=== PATIENT | female | born 1965 | race Caucasian/White ===

== ENCOUNTER 2020-04-20 15:07 | Inpatient (IN) | payer OTHER ==
--- NOTE | 2020-04-20 15:38 | BHS.RME ---
Substance Use & Tx History - Substance Use History Heroin Substance amount: 6-8 bags Frequency of use: Daily Substance route: Inhalation (ex: sniffing or snorting) Date of Last Use: 04/20/20 - Last Treatment Date of last treatment: First [facility] admit. Detox one year ago: [facility] Physical/Psych/Mental Status - Behavior General Behavior: Increased activity (restlessness, agitation) Eye Contact: Normal - Thinking Thought Processes: Tight Thought content: Future oriented - Physical Health Problems Is patient presently having any pain?: Yes (right posterior shoulder pain post lifting heavy bags) Does patient presently have any injuries (include location): No Does patient currently have a fever: No COWS - Scale Resting Pulse: 0= [place] 80 or Below Sweatin=Flushed/Facial Moisture Restless Observation: 1= Difficult to Sit Still Pupil Size: 0= Normal to Room Light Bone or Joint Aches: 1= Mild Discomfort Runny Nose/ Eye Tearin= Runny Nose/Eyes GI Upset > 30mins: 2= Nausea/Diarrhea Tremor Observation: 2= Slight Tremor Visible Yawning Observation: 1= 1-2x During Session Anxiety or Irritability: 1=Feels Anxious/Irritable Goose Flesh Skin: 0=Smooth Skin COWS Score: 12
[2020-04-20 16:27] VITALS: BMI 22.2
--- NOTE | 2020-04-20 16:46 | HP ---
COWS - Scale Resting Pulse: 0= [place] 80 or Below Sweatin=Flushed/Facial Moisture Restless Observation: 1= Difficult to Sit Still Pupil Size: 0= Normal to Room Light Bone or Joint Aches: 1= Mild Discomfort Runny Nose/ Eye Tearin= Runny Nose/Eyes GI Upset > 30mins: 2= Nausea/Diarrhea Tremor Observation: 2= Slight Tremor Visible Yawning Observation: 1= 1-2x During Session Anxiety or Irritability: 1=Feels Anxious/Irritable Goose Flesh Skin: 0=Smooth Skin COWS Score: 12 CIWA Score - Admission Criteria OASAS Guidelines: Admission for Medically Managed Detox: Requires at least one of the followin. CIWA greater than 12 2. Seizures within the past 24 hours 3. Delirium tremens within the past 24 hours 4. Hallucinations within the past 24 hours 5. Acute intervention needed for co occurring medical disorder 6. Acute intervention needed for co occurring psychiatric disorder 7. Severe withdrawal that cannot be handled at a lower level of care (continued vomiting, continued diarrhea, abnormal vital signs) requiring intravenous medication and/or fluids 8. Admitting History and Physical - Admission Chief Complaint: detox from heroin History of Present Illness: Patient is a 55 y/o female with a history of GERD who presents for detox from Heroin. Patient last used heroin this morning. First started using heroin for 5 years. Has gone through detox twice. Patient uses every day and uses between 6-7 bags. Patient has never overdosed. Patient denies using it IV. - Substance Use History Heroin Substance amount: 6-8 bags Frequency of use: Daily Substance route: Inhalation (ex: sniffing or snorting) Date of Last Use: 04/20/20 - Last Treatment Date of last treatment: First [facility] admit. Detox one year ago: [facility] PSHX: breast augmentaion Smokes 1 pack of cigarettes a day, denies alcohol use. patient meets inpatient criteria for detox from heroin with last use today, failed detox in the past. - Past Medical History Gastrointestinal: Yes: GERD - Past Surgical History Additional Past Surgical History: breast augmentation - Smoking History Smoking history: Current every day smoker Aproximately how many cigarettes per day: 15 - Alcohol/Substance Use Hx Alcohol Use: No History of Substance Use: reports: Heroin - Social History Usual Living Arrangement: Yes: Other (live with mom and grandson) Occupation: none Admission ROS [facility] - [facility] Allergies/Adverse Reactions: Allergies Allergy/AdvReac Type Severity Reaction Status Date / Time No Known Allergies Allergy Verified 04/20/20 17:02 - Ebola screening Have you traveled outside of the country in the last 21 days: No Have you had contact with anyone from an Ebola affected area: No Have you been sick,other than usual withdrawal symptoms: No Do you have a fever: No - Review of Systems Constitutional: No Symptoms Reported Respiratory: reports: No Symptoms reported Cardiac: reports: No Symptoms Reported GI: reports: No Symptoms Reported Musculoskeletal: reports: No Symptoms Reported Patient History - Smoking Cessation Smoking history: Never smoked - Substances abused Heroin Substance route: Inhalation Frequency: Daily Amount used: 6 bags Age of first use: 40 Date of last use: 04/20/20 Admission Physical Exam [facility] Vital Signs Vital Signs: Vital Signs - 24 hr 04/20/20 16:25 Temperature 97.6 F Pulse Rate 79 Respiratory 12 Rate Blood Pressure 104/77 - Physical General Appearance: Yes: Within Normal Limits, No Apparent Distress HEENTM: Yes: Hearing grossly Normal Respiratory: Yes: Chest Non-Tender, Normal Breath Sounds, No Accessory Muscle Use Cardiology: Yes: Regular Rhythm, Regular Rate Abdominal: Yes: Normal Bowel Sounds, Flat Musculoskeletal: Yes: full range of Motion Extremities: Yes: Normal Range of Motion - Diagnostic (1) Heroin addiction Current Visit: Yes Status: Acute (2) Opioid dependence with withdrawal Current Visit: Yes Status: Acute Breathalyzer - Breathalyzer Breathalyzer: 0 Vital Signs - Vital Signs Vital signs refused: No Temperature: 97.6 F Temperature source: Oral Pulse Rate: 79 Respiratory Rate: 12 Blood Pressure: 104/77 - Height Height: 5 ft 6 in - Weight Weight: 62.596 kg - BMI Body Mass Index (BMI): 22.2 Urine Drug Screen - Test Device Lot number: [id number] Expiration date: 04/20/21 - Control Is test valid?: Yes - Results Drug screen NEGATIVE: No Urine drug screen results: THC-Marijuana, FEN-Fentanyl, MOP-Opiates, BZO- Benzodiazepines Inpatient Rehab Admission - Rehab Decision to Admit Inpatient rehab admission?: No
[2020-04-20] MEDS ORDERED: IBUPROFEN 400 MG TABLET (FP) PO PRN (16:49)
[2020-04-20] MEDS ORDERED: cloNIDine HCL 0.1 MG TABLET PO PRN (16:49)
[2020-04-20] MEDS ORDERED: MAG HYDROX/AL HYDROX/SIMETH 30 ML UNIT-DOSE CUP PO PRN (16:49)
[2020-04-20] MEDS ORDERED: BISMUTH SUBSALICYLATE 524 MG/30 ML UD PO PRN (16:49)
[2020-04-20] MEDS ORDERED: ACETAMINOPHEN 325 MG TABLET (FP) PO PRN ×2 (16:49)
[2020-04-20] MEDS ORDERED: MENTHOL/PHENOL 1 EACH UD MM PRN (16:49)
[2020-04-20] MEDS ORDERED: MAGNESIUM CITRATE 300 ML BOTTLE PO PRN (16:49)
[2020-04-20] MEDS ORDERED: METHOCARBAMOL 500 MG TABLET PO PRN (16:49)
[2020-04-20] MEDS ORDERED: NICOTINE POLACRILEX 2 MG GUM BUC PRN (16:49)
[2020-04-20] MEDS ORDERED: MAGNESIUM HYDROX 2400MG/30ML ORAL SUSPENSION 30 ML CUP PO PRN (16:49)
[2020-04-20] MEDS ORDERED: METHADONE HCL 10 MG TABLET (FOR DETOX USE ONLY) PO ONE (17:15)
[2020-04-20] MEDS ORDERED: ONDANSETRON *ODT* 4 MG TABLET SL ONE (17:15)
[2020-04-20] MEDS: hydrOXYzine PAMOATE 25 MG CAPSULE (FP) PO SCH ×2 (18:13→22:45)
[2020-04-20] MEDS: PRENATAL VITAMINS W/ FOLIC ACID TABLET (FP) PO SCH (18:13)
[2020-04-20] MEDS: NICOTINE 7 MG/24 HOURS TOPICAL PATCH TD SCH (18:13)
[2020-04-20] MEDS ORDERED: MELATONIN 5 MG TABLETS PO SCH (22:00)
[2020-04-20] MEDS ORDERED: THIAMINE HCL 100 MG TABLET (FP) PO SCH (22:00)
[2020-04-21] MEDS: hydrOXYzine PAMOATE 25 MG CAPSULE (FP) PO SCH ×2 (05:45→09:49)
[2020-04-21] MEDS ORDERED: METHADONE HCL 10 MG TABLET (FOR DETOX USE ONLY) ONE (09:17)
[2020-04-21] MEDS ORDERED: METHADONE HCL 5 MG TABLET (FOR DETOX USE ONLY) ONE (09:18)
[2020-04-21 09:31] VITALS: BP 125/78; PULSE 64; TEMP 96.6
[2020-04-21] MEDS: PRENATAL VITAMINS W/ FOLIC ACID TABLET (FP) PO SCH (09:49)
[2020-04-21] MEDS: NICOTINE 7 MG/24 HOURS TOPICAL PATCH TD SCH (09:50)
[2020-04-21] MEDS ORDERED: METHADONE (DETOX) 20 MG, METHADONE (DETOX) 5 MG PO ONE (10:00)
[2020-04-21 10:28] LABS: HEMOGLOBIN 12.3 GM/dL (10.7-15.3); MCH 27.5 pg (25.7-33.7); MCHC 32.5 g/dl (32.0-36.0); MEAN CELL VOLUME 84.8 fl (80-96); MEAN PLT VOLUME 8.1 fl (7.5-11.1); PLATELET COUNT 315 K/MM3 (134-434); RBC 4.49 M/mm3 (3.60-5.2); RDW 15.5 % (11.6-15.6); WHITE BLOOD COUNT 6.2 K/mm3 (4.0-10.0)
[2020-04-21 10:38] LABS: ALBUMIN 3.2 g/dl (3.4-5.0); BILIRUBIN,TOTAL 0.8 mg/dL (0.2-1); BLOOD UREA NITROGEN 20.4 mg/dL (7-18); CALCIUM 9.4 mg/dL (8.5-10.1); CREATININE 0.9 mg/dL (0.55-1.3); POTASSIUM 4.3 mmol/L (3.5-5.1); TOT PROT 6.3 g/dl (6.4-8.2)
--- NOTE | 2020-04-21 10:39 | EKG ---
Test Reason : Blood Pressure : / mmHG Vent. Rate : 071 BPM Atrial Rate : 071 BPM P-R Int : 138 ms QRS Dur : 076 ms QT Int : 382 ms P-R-T Axes : 071 063 044 degrees QTc Int : 415 ms NORMAL SINUS RHYTHM NORMAL ECG NO PREVIOUS ECGS AVAILABLE Confirmed by Kwame Trejo MD ([id number]) on 04/21/2020 10:38:45 AM Referred By: Confirmed By:Kwame Trejo MD
--- NOTE | 2020-04-21 11:22 | DS ---
[facility] Detox Discharge Summary Admission Date: 04/20/20 Discharge Date: 04/21/20 - History Present History: Opioid Dependence Additional Comments: 55 years old female was admitted on 04/20/20 for opiate withdrawal sx management treated with methadone detox regiment ms brian insists to leave the detox today due to "I am taking xanax 3 mg every day" offer ms brian valium or ativan for xanax detox "I do not want to detox off xanax" General Appearance: Yes: Within Normal Limits, No Apparent Distress HEENTM: Yes: Hearing grossly Normal Respiratory: Yes: Chest Non-Tender, Normal Breath Sounds, No Accessory Muscle Use Cardiology: Yes: Regular Rhythm, Regular Rate Abdominal: Yes: Normal Bowel Sounds, Flat Musculoskeletal: Yes: full range of Motion Extremities: Yes: Normal Range of Motion Pertinent Past History: time for discharge 58 minutes treatment team met with ms brian to discuss the benefits of methadone regiment completion "I do not care much about the methadone" ms ward wants xanax 3 mg po and seroquel 400mg po ms ward insists to leave the detox mr ward received monthly xanax prescription last filled 03/25/20 of 90 pills - Physical Exam Results Vital Signs: Vital Signs Temperature 96.6 F L 04/21/20 08:50 Pulse Rate 64 04/21/20 08:50 Respiratory Rate 16 04/21/20 08:50 Blood Pressure 125/78 04/21/20 08:50 O2 Sat by Pulse Oximetry (%) 97 04/21/20 08:50 Pertinent Admission Physical Exam Findings: opiate withdrawal Laboratory Tests 04/20/20 04/21/20 04/21/20 16:27 08:15 08:15 WBC 6.2 RBC 4.49 Hgb 12.3 Hct 38.0 MCV 84.8 MCH 27.5 MCHC 32.5 RDW 15.5 Plt Count 315 MPV 8.1 Sodium 141 Potassium 4.3 Chloride 108 H Carbon Dioxide 28 Anion Gap 5 L BUN 20.4 H Creatinine 0.9 Est GFR (CKD-EPI)AfAm 84.61 Est GFR (CKD-EPI)NonAf 73.00 Random Glucose 89 Calcium 9.4 Total Bilirubin 0.8 AST 12 L ALT 14 Alkaline Phosphatase 78 Total Protein 6.3 L Albumin 3.2 L POC Urine HCG, Qual Negative Syphilis Serology 04/21/20 08:15 WBC RBC Hgb Hct MCV MCH MCHC RDW Plt Count MPV Sodium Potassium Chloride Carbon Dioxide Anion Gap BUN Creatinine Est GFR (CKD-EPI)AfAm Est GFR (CKD-EPI)NonAf Random Glucose Calcium Total Bilirubin AST ALT Alkaline Phosphatase Total Protein Albumin POC Urine HCG, Qual Syphilis Serology Non-reactive Vital Signs - 24 hr 04/20/20 04/20/20 04/20/20 16:25 17:09 17:51 Temperature 97.6 F 97.6 F 97.1 F L Pulse Rate 79 79 71 Respiratory 12 12 18 Rate Blood Pressure 104/77 104/77 135/77 O2 Sat by Pulse Oximetry (%) 04/20/20 04/20/20 04/20/20 17:54 19:26 20:49 Temperature 97.6 F 97.8 F Pulse Rate 79 60 Respiratory 12 18 Rate Blood Pressure 104/77 110/72 O2 Sat by Pulse 98 95 Oximetry (%) 04/21/20 04/21/20 06:37 08:50 Temperature 97.2 F L 96.6 F L Pulse Rate 57 L 64 Respiratory 18 16 Rate Blood Pressure 109/75 125/78 O2 Sat by Pulse 97 97 Oximetry (%) covid pending - Treatment Hospital Course: Detox Protocol Followed Patient has Accepted a Rehab Referral to: ivone lopez - Medication Discharge Medications: Ambulatory Orders NK [No Known Home Medication] 04/20/20 - Diagnosis (1) Opioid dependence with withdrawal Status: Acute (2) Substance induced mood disorder Status: Suspected - AMA Did Patient Leave Against Medical Advice: Yes COWS (PN) - Opiate Withdrawal Resting Pulse: 0= [place] 80 or Below Sweatin= Chills/Flushing Restless Observation: 0= Sits Still Pupil Size: 1= Pupils >than Normal Bone or Joint Aches: 1= Mild Discomfort Runny Nose/ Eye Tearin= None GI Upset > 30mins: 1= Stomach Cramp Tremor Observation of Outstretched Hands: 1= Tremor [place], Not Seen Yawning Observation: 0= None Anxiety or Irritability: 2=Irritable/Anxious Goose Flesh Skin: 3=Piloerection COWS Score: 10
--- NOTE | 2020-04-22 08:15 | PN ---
Teaching Attending Note Name of Resident: Aleah Rosa ATTENDING PHYSICIAN STATEMENT I saw and evaluated the patient. I reviewed the resident's note and discussed the case with the resident. I agree with the resident's findings and plan as documented. SUBJECTIVE: OBJECTIVE: ASSESSMENT AND PLAN: Agree with resident's findings and plan for detox.
[2020-04-22] MEDS ORDERED: METHADONE HCL 10 MG TABLET (FOR DETOX USE ONLY) PO ONE (10:00)
[2020-04-23] MEDS ORDERED: METHADONE (DETOX) 10 MG, METHADONE (DETOX) 5 MG PO ONE (10:00)
[2020-04-24] MEDS ORDERED: METHADONE HCL 10 MG TABLET (FOR DETOX USE ONLY) PO ONE (10:00)
[2020-04-25] MEDS ORDERED: METHADONE HCL 5 MG TABLET (FOR DETOX USE ONLY) PO ONE (06:00)
== END 2020-04-21 11:49 | disposition left against medical advice (07) | DRG 770 ==
LOC: YASAS 15:07 → Y3N 17:06
PROVIDERS: ADMIT Allergy & Immunology; ATTEND Allergy & Immunology
PROC: HZ2ZZZZ Detoxification Services for Substance Abuse Treatment (ICD-10-PCS; principal; 2020-04-20)
DX: F11.23 Opioid dependence with withdrawal (principal); F17.210 Nicotine dependence, cigarettes, uncomplicated; F19.24 Other psychoactive substance dependence with psychoactive substance-induced mood disorder; K21.9 Gastro-esophageal reflux disease without esophagitis; Z98.890 Other specified postprocedural states
CPT/HCPCS: 36415; 80053; 81025; 85027; 86780; 93005; 93010; U0003

== ENCOUNTER 2020-05-20 16:35 | Inpatient (IN) | payer OTHER ==
[2020-05-20 18:02] VITALS: BMI 21.7
--- NOTE | 2020-05-20 18:49 | BHS.RME ---
Substance Use & Tx History - Last Treatment Date of last treatment: 04/21/20 Treatment type: Substance Use Disorder (BRI) Where was last treatment: Detox Physical/Psych/Mental Status - Behavior Eye Contact: Normal - Cooperativeness Cooperativeness: Cooperative - Thinking Thought Processes: Logical - Physical Health Problems Is patient presently having any pain?: No Does patient presently have any injuries (include location): No Does patient currently have a fever: No Is patient : No COWS - Scale Resting Pulse: 0= [place] 80 or Below Sweatin= Chills/Flushing Restless Observation: 3= Extraneous Movement Pupil Size: 1= Pupils >than Normal Bone or Joint Aches: 2= Severe Diffuse Aches Runny Nose/ Eye Tearin= Nasal Congestion GI Upset > 30mins: 1= Stomach Cramp Tremor Observation: 1= Tremor [place], Not Seen Yawning Observation: 1= 1-2x During Session Anxiety or Irritability: 1=Feels Anxious/Irritable Goose Flesh Skin: 3=Piloerection COWS Score: 15 Treatment Recommendation - Level of Care Level of Care: Opioid Treatment Program (OTP) (admit for detox and then pt to consider OTP)
--- NOTE | 2020-05-20 18:55 | HP ---
COWS - Scale Resting Pulse: 0= [place] 80 or Below Sweatin= Chills/Flushing Restless Observation: 3= Extraneous Movement Pupil Size: 1= Pupils >than Normal Bone or Joint Aches: 2= Severe Diffuse Aches Runny Nose/ Eye Tearin= Nasal Congestion GI Upset > 30mins: 1= Stomach Cramp Tremor Observation: 1= Tremor [place], Not Seen Yawning Observation: 1= 1-2x During Session Anxiety or Irritability: 1=Feels Anxious/Irritable Goose Flesh Skin: 3=Piloerection COWS Score: 15 CIWA Score - Admission Criteria OASAS Guidelines: Admission for Medically Managed Detox: Requires at least one of the followin. CIWA greater than 12 2. Seizures within the past 24 hours 3. Delirium tremens within the past 24 hours 4. Hallucinations within the past 24 hours 5. Acute intervention needed for co occurring medical disorder 6. Acute intervention needed for co occurring psychiatric disorder 7. Severe withdrawal that cannot be handled at a lower level of care (continued vomiting, continued diarrhea, abnormal vital signs) requiring intravenous medication and/or fluids 8. Admitting History and Physical - Past Medical History Gastrointestinal: Yes: GERD - Smoking History Smoking history: Never smoked Aproximately how many cigarettes per day: 15 - Alcohol/Substance Use Hx Alcohol Use: No History of Substance Use: reports: Heroin - Social History Occupation: none Admission [facility] Chief Complaint: heroin detox Allergies/Adverse Reactions: Allergies Allergy/AdvReac Type Severity Reaction Status Date / Time No Known Allergies Allergy Verified 04/20/20 17:02 History of Present Illness: 55 yo with h/o depression, anxiety and panic attacks. Says when her daughter a few years ago, she was given heroin for depression by a cousin. Has been sniffing 5-6 bags/day. Was in a methadone program for a few months- did not like it and so left. Is willing to go back for MMTP. Says psychiatrist gives her Ativan 1mg/day for anxiety; Also on Seroquel 100mg qhs, paxil, Wellbutrin (not taking) Meds: PPI occ, PCP- [facility] heroin- 5-6 bags/day, no h/o OD Cannabis- smoke 1 joint/day Utox- Fen, THC, BZO LIA-0 - Ebola screening Have you traveled outside of the country in the last 21 days: No Have you had contact with anyone from an Ebola affected area: No Have you been sick,other than usual withdrawal symptoms: No Do you have a fever: No - Review of Systems Constitutional: No Symptoms Reported EENT: reports: No Symptoms Reported Respiratory: reports: No Symptoms reported Cardiac: reports: No Symptoms Reported GI: reports: No Symptoms Reported : reports: No Symptoms Reported Musculoskeletal: reports: No Symptoms Reported Integumentary: reports: No Symptoms Reported Neuro: reports: No Symptoms reported Endocrine: reports: No Symptoms Reported Hematology: reports: No Symptoms Reported Psychiatric: reports: No Sypmtoms Reported Other Systems: Reviewed and Negative Patient History - Patient Medical History Hx Asthma: No Hx Chronic Obstructive Pulmonary Disease (COPD): No Hx Cardiac Disorders: No Hx Hypertension: No Hx Seizures: No Hx Diabetes: No Hx Gastrointestinal Disorders: No Hx Genitourinary Disorders: No Hx Sexually Transmitted Disorders: No Hx Renal Disease (ESRD): No Hx Depression: Yes Hx Suicide Attempt: No Hx Schizophrenia: No - Patient Surgical History Past Surgical History: Yes Hx Neurologic Surgery: No Hx Cataract Extraction: No Hx Cardiac Surgery: No Hx Lung Surgery: No Hx Breast Surgery: No Hx Breast Biopsy: No Hx Abdominal Surgery: No Hx Appendectomy: No Hx Cholecystectomy: No Hx Genitourinary Surgery: No Hx Section: No Hx Orthopedic Surgery: No Other Surgical History: breast augmentation - PPD History Date: 04/22/20 - Reproductive History Patient is a Female of Child Bearing Age (11 -55 yrs old): Yes Patient : No - Smoking Cessation Smoking history: Never smoked Aproximately how many cigarettes per day: 15 Hx Chewing Tobacco Use: Yes Initiated information on smoking cessation: Yes 'Breaking Loose' booklet given: 05/20/20 - Substance & Tx. History Hx Alcohol Use: No Hx Substance Use: Yes Substance Use Type: Opiates, Tranquilizers Hx Substance Use Treatment: Yes Admission Physical Exam [facility] - Vital Signs Vital Signs: Vital Signs - 24 hr 05/20/20 18:00 Temperature 97.3 F L Pulse Rate 60 Respiratory 16 Rate Blood Pressure 123/75 - Physical General Appearance: Yes: Within Normal Limits HEENTM: Yes: Within Normal Limits, JOJO Respiratory: Yes: Within Normal Limits, Lungs Clear Neck: Yes: Within Normal Limits Cardiology: Yes: Within Normal Limits Abdominal: Yes: Within Normal Limits, Flat Back: Yes: Within Normal Limits Musculoskeletal: Yes: Within Normal Limits Extremities: Yes: Within Normal Limits Neurological: Yes: Within Normal Limits Integumentary: Yes: Within Normal Limits Lymphatic: Yes: Within Normal Limits - Diagnostic (1) Anxiety Current Visit: Yes Status: Acute (2) Depression Current Visit: Yes Status: Acute (3) Panic disorder Current Visit: Yes Status: Acute (4) Heroin addiction Current Visit: No Status: Acute (5) Opioid dependence with withdrawal Current Visit: No Status: Acute (6) Substance induced mood disorder Current Visit: No Status: Suspected Breathalyzer - Breathalyzer Breathalyzer: 0 Urine Drug Screen - Test Device Lot number: [id number] Expiration date: 11/26/21 - Control Is test valid?: Yes - Results Drug screen NEGATIVE: No Urine drug screen results: THC-Marijuana, FEN-Fentanyl, BZO-Benzodiazepines Inpatient Rehab Admission - Rehab Decision to Admit Inpatient rehab admission?: No
[2020-05-20] MEDS ORDERED: METHADONE HCL 10 MG TABLET (FOR DETOX USE ONLY) PO ONE (19:37)
[2020-05-20] MEDS ORDERED: cloNIDine HCL 0.1 MG TABLET PO PRN (19:37)
[2020-05-20] MEDS ORDERED: diazePAM 5 MG TABLET PO PRN (19:37)
[2020-05-20] MEDS ORDERED: IBUPROFEN 400 MG TABLET (FP) PO PRN (19:38)
[2020-05-20] MEDS ORDERED: MAGNESIUM HYDROX 2400MG/30ML ORAL SUSPENSION 30 ML CUP PO PRN (19:38)
[2020-05-20] MEDS ORDERED: QUEtiapine FUMARATE 100 MG TABLET (FP) PO PRN (19:38)
[2020-05-20] MEDS ORDERED: MAG HYDROX/AL HYDROX/SIMETH 30 ML UNIT-DOSE CUP PO PRN (19:38)
[2020-05-20] MEDS ORDERED: ACETAMINOPHEN 325 MG TABLET (FP) PO PRN ×2 (19:38)
[2020-05-20] MEDS ORDERED: NICOTINE POLACRILEX 2 MG GUM BUC PRN (19:38)
[2020-05-20] MEDS ORDERED: MENTHOL/PHENOL 1 EACH UD MM PRN (19:38)
[2020-05-20] MEDS ORDERED: MAGNESIUM CITRATE 300 ML BOTTLE PO PRN (19:38)
[2020-05-20] MEDS ORDERED: ONDANSETRON *ODT* 4 MG TABLET SL PRN (19:38)
[2020-05-20] MEDS ORDERED: METHOCARBAMOL 500 MG TABLET PO PRN (19:38)
[2020-05-20] MEDS ORDERED: BISMUTH SUBSALICYLATE 524 MG/30 ML UD PO PRN (19:38)
[2020-05-20] MEDS: THIAMINE HCL 100 MG TABLET (FP) PO SCH (22:43)
[2020-05-20] MEDS: hydrOXYzine PAMOATE 25 MG CAPSULE (FP) PO SCH (22:43)
[2020-05-20] MEDS: MELATONIN 5 MG TABLETS PO SCH (22:43)
[2020-05-21] MEDS: hydrOXYzine PAMOATE 25 MG CAPSULE (FP) PO SCH ×5 (06:22→22:31)
[2020-05-21] MEDS ORDERED: METHADONE HCL 10 MG TABLET (FOR DETOX USE ONLY) ONE (08:57)
[2020-05-21] MEDS ORDERED: METHADONE HCL 5 MG TABLET (FOR DETOX USE ONLY) ONE (08:58)
[2020-05-21] MEDS ORDERED: METHADONE (DETOX) 20 MG, METHADONE (DETOX) 5 MG PO ONE (10:00)
[2020-05-21] MEDS ORDERED: NICOTINE 7 MG/24 HOURS TOPICAL PATCH TD SCH (10:00)
[2020-05-21] MEDS ORDERED: PRENATAL VITAMINS W/ FOLIC ACID TABLET (FP) PO SCH (10:00)
[2020-05-21 10:17] LABS: HEMATOCRIT 39.5 % (32.4-45.2); HEMOGLOBIN 12.9 GM/dL (10.7-15.3); MCH 27.4 pg (25.7-33.7); MCHC 32.5 g/dl (32.0-36.0); MEAN CELL VOLUME 84.1 fl (80-96); MEAN PLT VOLUME 7.8 fl (7.5-11.1); PLATELET COUNT 269 K/MM3 (134-434); RDW 15.5 % (11.6-15.6); WHITE BLOOD COUNT 7.3 K/mm3 (4.0-10.0)
[2020-05-21 10:21] LABS: ALBUMIN 3.5 g/dl (3.4-5.0); BILIRUBIN,TOTAL 0.5 mg/dL (0.2-1); BLOOD UREA NITROGEN 14.6 mg/dL (7-18); CALCIUM 9.5 mg/dL (8.5-10.1); CREATININE 1.1 mg/dL (0.55-1.3); POTASSIUM 4.9 mmol/L (3.5-5.1); TOT PROT 6.7 g/dl (6.4-8.2)
--- NOTE | 2020-05-21 10:29 | PN ---
S COWS - Scale Resting Pulse: 0= [place] 80 or Below Sweatin= No chills or Flushing Restless Observation: 0= Sits Still Pupil Size: 1= Pupils >than Normal Bone or Joint Aches: 2= Severe Diffuse Aches Runny Nose/ Eye Tearin= Nasal Congestion GI Upset > 30mins: 2= Nausea/Diarrhea Tremor Observation of Outstretched Hands: 2= Slight Tremor Visible Yawning Observation: 1= 1-2x During Session Anxiety or Irritability: 2=Irritable/Anxious Goose Flesh Skin: 0=Smooth Skin COWS Score: 11 [facility] Progress Note (SOAP) Subjective: alert,irritable,anxious,interrupted sleep,tremor,irritable,anxious,interrupted s leep,aching pain in the body and back,nausea Objective: 05/21/20 17:33 Vital Signs Temperature 97.1 F L 05/21/20 12:33 Pulse Rate 49 L 05/21/20 12:33 Respiratory Rate 18 05/21/20 12:33 Blood Pressure 135/77 05/21/20 12:33 O2 Sat by Pulse Oximetry (%) 100 05/21/20 12:33 05/21/20 17:34 Laboratory Last Values WBC 7.3 K/mm3 (4.0-10.0) 05/21/20 07:00 RBC 4.70 M/mm3 (3.60-5.2) 05/21/20 07:00 Hgb 12.9 GM/dL (10.7-15.3) 05/21/20 07:00 Hct 39.5 % (32.4-45.2) 05/21/20 07:00 MCV 84.1 fl (80-96) 05/21/20 07:00 MCH 27.4 pg (25.7-33.7) 05/21/20 07:00 MCHC 32.5 g/dl (32.0-36.0) 05/21/20 07:00 RDW 15.5 % (11.6-15.6) 05/21/20 07:00 Plt Count 269 K/MM3 (134-434) 05/21/20 07:00 MPV 7.8 fl (7.5-11.1) 05/21/20 07:00 Sodium 139 mmol/L (136-145) 05/21/20 07:00 Potassium 4.9 mmol/L (3.5-5.1) 05/21/20 07:00 Chloride 106 mmol/L (98-107) 05/21/20 07:00 Carbon Dioxide 31 mmol/L (21-32) 05/21/20 07:00 Anion Gap 3 MMOL/L (8-16) L 05/21/20 07:00 BUN 14.6 mg/dL (7-18) 05/21/20 07:00 Creatinine 1.1 mg/dL (0.55-1.3) 05/21/20 07:00 Est GFR (CKD-EPI)AfAm 66.38 05/21/20 07:00 Est GFR (CKD-EPI)NonAf 57.27 05/21/20 07:00 Random Glucose 91 mg/dL (74-106) 05/21/20 07:00 Calcium 9.5 mg/dL (8.5-10.1) 05/21/20 07:00 Total Bilirubin 0.5 mg/dL (0.2-1) 05/21/20 07:00 AST 11 U/L (15-37) L 05/21/20 07:00 ALT 10 U/L (13-61) L 05/21/20 07:00 Alkaline Phosphatase 82 U/L (45-117) 05/21/20 07:00 Total Protein 6.7 g/dl (6.4-8.2) 05/21/20 07:00 Albumin 3.5 g/dl (3.4-5.0) 05/21/20 07:00 POC Urine HCG, Qual Negative 05/20/20 18:02 Assessment: 05/21/20 17:34 withdrawal symptom Plan: continue detox methadone regimen
[2020-05-21] MEDS: THIAMINE HCL 100 MG TABLET (FP) PO SCH (22:30)
[2020-05-21] MEDS: MELATONIN 5 MG TABLETS PO SCH (22:31)
[2020-05-22] MEDS: hydrOXYzine PAMOATE 25 MG CAPSULE (FP) PO SCH (07:15)
[2020-05-22 09:30] VITALS: BP 126/72; PULSE 53; TEMP 97.8
[2020-05-22] MEDS ORDERED: METHADONE HCL 10 MG TABLET (FOR DETOX USE ONLY) PO ONE (10:00)
--- NOTE | 2020-05-22 13:34 | DS ---
[facility] Detox Discharge Summary Admission Date: 05/20/20 Discharge Date: 05/22/20 (Pt left AMA.) - History Present History: Opioid Dependence Additional Comments: Pt left AMA. Pt did not complete the detox protocol. Pt states, "I just want to leave, I can't watch the male patients cursing the staff like that, it makes me sick to my stomach". An attempt to let pt stay and continue the detox protocol Pt is encouraged to follow-up with an outpatient CD program and also to follow- up with her PMD which she verbalized understanding. Pt is AOX3, in no acute respiratory distress, Full ROM, and ambulatory. Pertinent Past History: h/o opioid use disorder. - Physical Exam Results Vital Signs: Vital Signs Temperature 97.8 F 05/22/20 08:43 Pulse Rate 53 L 05/22/20 08:43 Respiratory Rate 18 05/22/20 08:43 Blood Pressure 126/72 05/22/20 08:43 O2 Sat by Pulse Oximetry (%) 99 05/22/20 06:00 Vital Signs 05/22/20 05/22/20 06:00 08:43 Temperature 96.9 F L 97.8 F Pulse Rate 44 L 53 L Respiratory 16 18 Rate Blood Pressure 93/64 126/72 O2 Sat by Pulse 99 Oximetry (%) Laboratory Last Values WBC 7.3 K/mm3 (4.0-10.0) 05/21/20 07:00 RBC 4.70 M/mm3 (3.60-5.2) 05/21/20 07:00 Hgb 12.9 GM/dL (10.7-15.3) 05/21/20 07:00 Hct 39.5 % (32.4-45.2) 05/21/20 07:00 MCV 84.1 fl (80-96) 05/21/20 07:00 MCH 27.4 pg (25.7-33.7) 05/21/20 07:00 MCHC 32.5 g/dl (32.0-36.0) 05/21/20 07:00 RDW 15.5 % (11.6-15.6) 05/21/20 07:00 Plt Count 269 K/MM3 (134-434) 05/21/20 07:00 MPV 7.8 fl (7.5-11.1) 05/21/20 07:00 Sodium 139 mmol/L (136-145) 05/21/20 07:00 Potassium 4.9 mmol/L (3.5-5.1) 05/21/20 07:00 Chloride 106 mmol/L (98-107) 05/21/20 07:00 Carbon Dioxide 31 mmol/L (21-32) 05/21/20 07:00 Anion Gap 3 MMOL/L (8-16) L 05/21/20 07:00 BUN 14.6 mg/dL (7-18) 05/21/20 07:00 Creatinine 1.1 mg/dL (0.55-1.3) 05/21/20 07:00 Est GFR (CKD-EPI)AfAm 66.38 05/21/20 07:00 Est GFR (CKD-EPI)NonAf 57.27 05/21/20 07:00 Random Glucose 91 mg/dL (74-106) 05/21/20 07:00 Calcium 9.5 mg/dL (8.5-10.1) 05/21/20 07:00 Total Bilirubin 0.5 mg/dL (0.2-1) 05/21/20 07:00 AST 11 U/L (15-37) L 05/21/20 07:00 ALT 10 U/L (13-61) L 05/21/20 07:00 Alkaline Phosphatase 82 U/L (45-117) 05/21/20 07:00 Total Protein 6.7 g/dl (6.4-8.2) 05/21/20 07:00 Albumin 3.5 g/dl (3.4-5.0) 05/21/20 07:00 POC Urine HCG, Qual Negative 05/20/20 18:02 Labs noted. Pertinent Admission Physical Exam Findings: withdrawal symptoms. - Treatment Hospital Course: Detox Protocol Followed - Medication Discharge Medications: Ambulatory Orders Bupropion HCl [Wellbutrin Sr] 1 tablet PO DAILY 05/20/20 Lorazepam [Ativan] 1 mg PO DAILY 05/20/20 Omeprazole 40 mg PO DAILY 05/20/20 Paroxetine HCl [Paxil] 20 mg PO DAILY 05/20/20 Quetiapine Fumarate [Seroquel -] 200 mg PO HS 05/20/20 Zolpidem Tartrate [Ambien] 10 mg PO HS 05/20/20 - Diagnosis (1) Heroin addiction Status: Chronic (2) Opioid dependence with withdrawal Status: Acute - AMA Did Patient Leave Against Medical Advice: Yes
[2020-05-23] MEDS ORDERED: METHADONE (DETOX) 10 MG, METHADONE (DETOX) 5 MG PO ONE (10:00)
[2020-05-24] MEDS ORDERED: METHADONE HCL 10 MG TABLET (FOR DETOX USE ONLY) PO ONE (10:00)
[2020-05-25] MEDS ORDERED: METHADONE HCL 5 MG TABLET (FOR DETOX USE ONLY) PO ONE (06:00)
== END 2020-05-22 09:42 | disposition left against medical advice (07) | DRG 770 ==
LOC: YASAS 16:35 → Y3N 20:14
PROVIDERS: ADMIT Allergy & Immunology; ATTEND Allergy & Immunology
PROC: HZ2ZZZZ Detoxification Services for Substance Abuse Treatment (ICD-10-PCS; principal; 2020-05-20)
DX: F11.23 Opioid dependence with withdrawal (principal); F12.20 Cannabis dependence, uncomplicated; F19.24 Other psychoactive substance dependence with psychoactive substance-induced mood disorder; F32.9 Major depressive disorder, single episode, unspecified; F41.9 Anxiety disorder, unspecified; F41.0 Panic disorder [episodic paroxysmal anxiety]; K21.9 Gastro-esophageal reflux disease without esophagitis
CPT/HCPCS: 36415; 80053; 81025; 85027; U0003